=== PATIENT | female | born 1975 | race Caucasian/White ===

== ENCOUNTER 2016-06-04 17:29 | Emergency (ER) | payer OTHER ==
[~2016-06-04] VITALS: Ht 162.6 cm; Wt 170.9 kg
[~2016-06-04 17:29] MED LIST: ALBU8.5H2 INHALATION; CEFU500T PO; CLIN-78 PO; DIAZ5TAB3 PO; DICY20TA33 PO; DOXY100C2 PO; FLUT10.62 IH; NAPR500T PO; OMEP20TA86 PO; ONDA4TAB6 PO; ONDA8TAB10 PO; OXYC1TAB24 PO; PANT40TA2 PO; TRAM50TA2 PO
[2016-06-04 17:31] VITALS: BP 186/120; PULSE 98; RESP 24; O2SAT 94
--- NOTE | 2016-06-04 18:22 | ED.REPORT ---
HPI-Back Pain 40 and Over Date of Service Jun 04, 2016 ED Provider: Missael Mendez MD A 40 year old female with a medical history including PCOS, hypertension, renal insufficiency, PE, and chronic back pain presents to the ED from Urgent Care with worsening lower back pain onset suddenly this morning while turning off the faucet in the shower. The pain is constant and "sharp" in nature, with radiation down her legs bilaterally. The patient has taken Aleve x2 and applied Biofreeze with no relief. She denies bowel incontinence, urinary incontinence, tingling, numbness, weakness, recent injury/trauma, or other symptoms. Nursing Notes Stated Complaint: LBP Chief Complaint: Back Pain or Injury Nursing Notes Reviewed: Yes Allergies: Coded Allergies: Penicillins (Verified Allergy, Severe, Swelling, 12/13/14) Sulfa (Sulfonamide Antibiotics) (Verified Allergy, Severe, Swelling, 12/13) levofloxacin (Verified Allergy, Severe, itching, burning, swelling to the site , 04/28/14) pt started on IV Levaquin and immediately developed itching and swelling to the IV site cephalexin (Verified Adverse Reaction, Severe, nausea , vomitting, 06/08/15) meperidine (Verified Adverse Reaction, Severe, Psychosis, 12/13/14) metoclopramide HCl (Verified Adverse Reaction, Severe, Psychosis, 12/13/14 ) Scheduled Albuterol HFA (Proair HFA) 8.5 Gm Hfa.aer.ad 2 PUFFS INHALATION Q4H Cefuroxime Axetil (Ceftin) 500 Mg Tablet 500 MG PO BID Clindamycin (Clindamycin) 300 Mg Capsule 300 MG PO QID Doxycycline Hyclate (Doxycycline Hyclate) 100 Mg Capsule 100 MG PO BID Fluticasone Propionate (Flovent HFA 44 mcg) 10.6 Gm Aer.w.adap 2 PUFFS IH BID Omeprazole (Omeprazole) 20 Mg Tablet.dr 20 MG PO BID Pantoprazole DR (Protonix) 40 Mg Tablet 40 MG PO DAILY Scheduled PRN Cyclobenzaprine (Cyclobenzaprine) 5 Mg Tablet 5 MG PO HS PRN PRN Spasm Diazepam (Diazepam) 5 Mg Tablet 5 MG PO QID PRN PRN For Anxiety Dicyclomine (Bentyl) 20 Mg Tablet 20 MG PO QID PRN PRN For Pain Naproxen (Naprosyn) 500 Mg Tablet 500 MG PO BID PRN PRN For Pain Ondansetron (Zofran) 4 Mg Tablet 4 MG PO Q4H PRN PRN For Nausea Ondansetron ODT (Ondansetron ODT) 8 Mg Tab.rapdis 8 MG PO QID PRN PRN For Nausea Ondansetron ODT (Ondansetron ODT) 8 Mg Tab.rapdis 8 MG PO QID PRN PRN For Nausea Tramadol (Tramadol) 50 Mg Tablet 50-100 MG PO Q6H PRN PRN For Pain oxyCODONE-Acetaminophen 5-325 mg (oxyCODONE-Acetaminophen 5-325 mg) 1 Each Tablet 1-2 TAB PO Q6H PRN PRN For Pain General Time Seen by MD: 17:41 Chief Complaint Back pain Hx Obtained From: Patient Arrived By: Walk-in Sudden in Onset?: Yes Onset Occurred: 9 - 12 hours ago Caused by: Spontaneous/no mechanism Location: : Spinal lumbar area Quality: Painful Radiation: : Left leg above knee: Left leg below knee: Right leg above knee: Right leg below knee Severity: Current: Moderate Severity: Maximum: Moderate Associated with: Denies: Fever, Incontinence bladder, Incontinence bowel, Numbness both low ext, Tingling left lower ext, Tingling right lower ext, Weakness both lower ext Pertinent Negative: Relieved by nothing Related History: Reports: Chronic back pain Recent Healthcare: Recent doctor visit Similar Sx Previous: Yes Past Medical History Past Medical History Nepholithiasis Frequent urinary tract infections PCOS h/o renal insufficiency History of hernias Recurring abscess/cyst Ovarian cysts Anxiety Pulmonary Embolism GI bleeding Sigmoid colitis with pelvic abscess Chronic diarrhea Chronic back pain Reports: GERD, Hypertension Past Surgical History kidney stone removal Gall stone removal Parathyroid removal Umbilical hernia repair Reports: Appendectomy, , Cholecystectomy Reports: Carpal tunnel Family History noncontributory Smoking History Current Every Day Smoker Social History Alcohol Use: Denies alcohol use Drug Use: Denies drug use Other Social History: Good social support, Local resident Ambulatory Status Independent Review of Systems Review of Systems Note: - Tingling Constitutional: Denies: Fever Respiratory: Denies: Non-productive cough, Shortness of breath GI: Denies: Diarrhea, Vomiting Musculoskeletal: Reports: Back pain, Extremity pain (Bilateral legs) Neurologic: Denies: Bladder dysfunction, Bowel dysfunction, Numbness, Weakness Complete sys rev & neg: except as marked. Physical Exam Initial Vital Signs Vital Signs (First) Date Time Temp Pulse Resp B/P Pulse Ox O2 Delivery O2 Flow Rate FiO2 06/04/16 17:31 36.9 98 24 186/120 94 Room Air Initial VS: Reviewed Head / Eyes: Atraumatic, Normocephalic Skin: Warm, Dry Psychiatric: Mood/affect normal, Behavior normal General/Constitutional: Awake, Alert Respiratory / Chest: Breath sounds NL, Breath sounds = bilat, No respiratory distress Cardiovascular: Heart rate NL, Regular rhythm, Heart sounds NL, No gallop, No murmurs, No rubs Abdomen: Soft, Non-tender, No distention Back: No midline vertebral tend (C,T, or L) Flank / Spine / Paraspinal: Positive: Lumbar paraspinal tend... (Bilateral) No bony deformity Neurologic: Oriented X3, Speech NL, No motor deficits, No sensory deficits 5/5 strength in bilateral lower extremities Normal patellar reflexes No saddle anesthesia Re-Eval/Medical Decision Med Decision/Clinical Course In summary, the patient is a generally healthy 40-year-old female with past medical history significant for chronic low back pain, who presents with back pain exacerbation. Our primary and secondary assessment reveals an awake, alert patient in no acute distress. Hemodynamically stable and afebrile. Exam reveals normal neurologic exam of the lower extremities. Given this immunocompetent, afebrile, patient's history and exam, suspect muscle strain or spasm. No concerning signs or symptoms suggestive of cauda equina, cord compression, epidural abscess or other neurologic emergency. History not suggestive of referred intraabdominal pathology or vascular emergency. There is no history of significant trauma, fever, incontinence, unexplained weight loss, cancer history, long-term steroid use or IV drug use. And given the patient's young age, I do not feel imaging is warranted at this time. Given the patient's workup, feel they are safe for discharge with conservative management. The patient was given intramuscular Toradol for symptom control while here in the ER. Have discussed with the patient results of workup, indications for return including: motor weakness in the lower extremities and/or bowel or bladder incontinence. Also emphasized the need for PCP follow up. They understand and agree with the plan. Re-Evaluation/Progress : Time of Eval: 19:27 Patient Status: Condition improved Re-Evaluation/Progress Note: Discussed with patient physical exam results, diagnosis, and plan for discharge. Follow-up and return to the ER instructions given. Patient agrees with plan for care and all questions were addressed. Counseled Regarding: Diagnosis, Need for follow-up, When/why to return to ED Discharge & Departure Impression: Primary Impression: Back strain Encounter type: initial encounter Qualified Code: S39.012A - Strain of muscle, fascia and tendon of lower back, initial encounter Additional Impressions: Acute exacerbation of chronic low back pain Morbid obesity Obesity type: unspecified obesity type Qualified Code: E66.01 - Morbid ( severe) obesity due to excess calories Disposition: Home Discharge Condition All VS Reviewed: Yes Condition: Improved Patient Instructions: Acute Low Back Pain (ED) Additional Instructions: Thank you for seeking care at the emergency room. It is difficult for us to make definitive diagnoses in the ED but we believe that you are experiencing a back sprain. Our primary goal today in the ED was to evaluate you for any life-threatening conditions. Your evaluation was reassuring. You will be discharged with a prescription for Flexeril . Apply ice packs for pain. You may also use Ibuprofen as directed, 600mg three times daily for up to a week as needed for pain. You should follow-up with your primary doctor in the next week. You should return to the ED immediately if you develop worsening pain, incontinence, numbness, weakness, fevers, vomiting, cough, shortness of breath, chest pain, lightheadedness, or any other concerning signs or symptoms. Thank you for letting us partake in your care today. Referrals: Stanley Peck MD (PCP) Scribe Attestation Portions of this note were transcribed by Bere Campbell. I, Dr. Menedz, personally performed the history, physical exam, and medical decision-making; I reviewed and confirmed the accuracy of the information in the transcribed note. Signed by: Bruno Sheets, 06/04/2016, 22:45 copies to: Stanley Peck MD, Beck O MD Jun 04, 2016 18:22 BERE CAMPBELL Jun 04, 2016 19:22
[2016-06-04 18:28] VITALS: BP 154/97; PULSE 92; O2SAT 92; O2SAT 94
[2016-06-04] MEDS ORDERED: CYCL5TAB PO (19:26)
[2016-06-04 19:40] VITALS: BP 152/94; PULSE 90; RESP 22; O2SAT 96
== END 2016-06-04 19:41 | disposition home or self-care (01) ==
LOC: SED 17:29
DX: S39.012A Strain of muscle, fascia and tendon of lower back, initial encounter (principal); X50.1XXA Overexertion from prolonged static or awkward postures, initial encounter; Y93.89 Activity, other specified; Y92.89 Other specified places as the place of occurrence of the external cause; Y99.8 Other external cause status; E66.01 Morbid (severe) obesity due to excess calories; K21.9 Gastro-esophageal reflux disease without esophagitis; I10 Essential (primary) hypertension; Z88.0 Allergy status to penicillin; Z88.1 Allergy status to other antibiotic agents; Z88.2 Allergy status to sulfonamides; Z88.8 Allergy status to other drugs, medicaments and biological substances
CPT/HCPCS: 96372; 99283; G0463; J1885